=== PATIENT | female | born 1960 | race Caucasian/White ===

== ENCOUNTER → 2016-07-15 09:45 | Outpatient (CLI) | payer BC ==
[2016-01-03 09:03] VITALS: BMI 33.8
[~2016-07-15 09:45] MED LIST: ALDACTONE50 MG PO; CATAPRES TTS-10.1 MG TD; CINNAMON500 MG PO; FISH OIL 1,0001 CA1 PO; GLUCOPHAGE500 MG PO; HYDRALAZINE HCL25 MG PO; IBUPROFEN600 MG PO; INVOKANA300 MG PO; KLOR-CON 1010 MEQ PO; KORLYM PO; LASIX40 MG PO; NORMODYNE / TR300 MG PO; PRILOSEC20 MG PO; TRANDATE300 MG PO; VITAMIN D31000 UNIT PO; WELCHOL625 MG PO
== END | disposition home or self-care (01) ==
LOC: D.MRI 09:45
DX: S83.512A Sprain of anterior cruciate ligament of left knee, initial encounter (principal)

== ENCOUNTER → 2016-08-16 10:20 | Outpatient (CLI) | payer BC ==
[2016-01-03 09:03] VITALS: BMI 33.8
[2016-08-19 03:05] LABS: CALCITONIN <2.0 pg/mL (0.0-5.0)
== END | disposition home or self-care (01) ==
LOC: D.LAB 10:20
PROVIDERS: Internal Medicine Endocrinology, Diabetes & Metabolism
DX: E11.9 Type 2 diabetes mellitus without complications (principal); D35.00 Benign neoplasm of unspecified adrenal gland; E04.1 Nontoxic single thyroid nodule

== ENCOUNTER 2016-08-22 06:20 | Day surgery (SDC) | payer BC ==
[2016-08-21 15:06] LABS: HEMOGLOBIN 13.5 g/dL (12-16); MCH 30.8 pg (26.0-34.0); MCHC 32.9 g/dL (31.0-37.0); MCV 93.6 fL (80.0-100.0); MEAN PLATELET VOLUME 10.4 fL (7.4-10.4); RBC 4.38 10x6/uL (4.00-5.40); RDW 13.4 % (11.5-14.5); WBC 5.6 10x3/uL (4.8-10.8)
[2016-08-21 15:14] LABS: ANION GAP 16.2 mmol/L (8-16); CALCIUM 9.1 mg/dL (8.5-10.1); CARBON DIOXIDE 24.2 mmol/L (21.0-32.0); CREATININE - SERUM 0.9 mg/dL (0.6-1.3); POTASSIUM - SERUM 4.4 mmol/L (3.5-5.1)
[~2016-08-22] VITALS: Ht 167.6 cm; Wt 95.3 kg
[2016-08-22] MEDS ORDERED: HYDRALAZINE HCL25 MG PO (07:32)
[2016-08-22] MEDS ORDERED: BAYER CHEWABLE81 MG PO (07:33)
[2016-08-22 07:37] VITALS: BP 137/87; Ht 167.6 cm; Wt 95.3 kg
[2016-08-22] MEDS ORDERED: DILAUDID2 MG PO (10:08)
--- NOTE | 2016-08-22 12:50 | NUR ---
IV DC WITH CATHER TIP INTACT
--- NOTE | 2016-08-29 13:14 | OP ---
PATIENT NAME: FRAKNIE BENDER MEDICAL RECORD: [id number] :62 LOCATION:D.OPS ADMISSION DATE: SURGEON: SHAHLA TRACY MD OPERATION DATE: 08/22/16 DATE OF OPERATION: 08/22/2016 PREOPERATIVE DIAGNOSIS: ACL tear of the left knee. POSTOPERATIVE DIAGNOSES: 1. ACL tear of the left knee. 2. Medial meniscus tear. PROCEDURES: 1. Arthroscopic assisted allograft ACL reconstruction, left knee. 2. Partial medial meniscectomy of the left knee - arthroscopic. SURGEON: Shahla Tracy MD ANESTHESIA: General. INTRAOPERATIVE COMPLICATIONS: None. SUMMARY OF PATHOLOGIC FINDINGS: The patient was found to have a complex tear of the posterior horn of the medial meniscus in addition to the full thickness anterior cruciate ligament tear. OPERATIVE SUMMARY IN DETAIL: After obtaining the appropriate preoperative orthopedic surgery consent as well as anesthetic consultation, evaluation and clearance, the patient was brought to the operating room and placed on table in supine position. After general laryngeal mask was administered, the tourniquet was placed about the proximal aspect of the left lower extremity. Left lower extremity was then prepped and draped in routine sterile fashion. The arm was elevated, exsanguinated and tourniquet was inflated to 350 mmHg. Routine inferolateral portal was created followed by superior medial portal. Diagnostic arthroscopy did reveal the patient had the above findings. A large arthroscopic resector was utilized to debride the residual ACL stump both on the tibial aspect as well as the femoral aspect, slight notchplasty was performed. Attention was then turned to the medial meniscus. A 4.0 resector was utilized along with the meniscotomes and debride the medial meniscus back to stable meniscal elements. Having completed this, attention was returned to the ACL. A 10-mm tibial tunnel was created under arthroscopic evaluation as well as a 10 mm femoral tunnel to approximately 30 mm deep and the guide hole for passing the TightRope button was opened to approximately 4 mm using the cannulated drill bit. Guidewires were passed used on the previously placed Beath pin. This was used to pull the tails of the TightRope button through and through and then under gentle direct arthroscopic visualization, the graft was seated in the femoral compartment as well as the tibial tunnel and tightened using the TightRope technique against the lateral aspect of the femoral cortex. With good tension in place, the knee was taken through multiple range of motion. The distal fixation was carried out with bicortical tibial post. This resulted in excellent stability. Having completed this, the wounds were closed in the usual fashion. Sterile dressings were applied. The patient was awakened and taken to the recovery room in stable condition. All final needle and sponge counts were correct. OPERATIVE REPORT [id number] FRANKIE BENDER TRANSINT:[id number] Voice Confirmation ID: [id number] DOCUMENT ID: [id number] DEMARCUS VARGAS, SHAHLA FINLEY at 1314 CC: [id number] DICTATION DATE: 08/23/16 1057 ZOO VETERINARIAN: 08/29/16 0007 [facility] 08/22/16 [id number] [place] [address]
== END 2016-08-22 13:00 | disposition home or self-care (01) ==
LOC: D.OPS 06:20 → D.PAN 08:30 → D.OPS 11:15
PROVIDERS: Anesthesiology
DX: M23.612 Other spontaneous disruption of anterior cruciate ligament of left knee (principal); M17.9 Osteoarthritis of knee, unspecified; M25.562 Pain in left knee; E11.9 Type 2 diabetes mellitus without complications; K21.9 Gastro-esophageal reflux disease without esophagitis; I10 Essential (primary) hypertension; Z01.812 Encounter for preprocedural laboratory examination; S83.242A Other tear of medial meniscus, current injury, left knee, initial encounter

== ENCOUNTER 2017-04-18 06:34 | Day surgery (SDC) | payer BC ==
[2017-04-17 14:59] LABS: ANION GAP 15.1 mmol/L (8-16); CALCIUM 9.1 mg/dL (8.5-10.1); CARBON DIOXIDE 24.7 mmol/L (21.0-32.0); CREATININE - SERUM 0.9 mg/dL (0.6-1.3); POTASSIUM - SERUM 3.8 mmol/L (3.5-5.1)
[2017-04-17 15:00] LABS: HEMATOCRIT 40.5 % (36.0-48.0); HEMOGLOBIN 13.7 g/dL (12-16); MCH 31.5 pg (26.0-34.0); MCHC 33.8 g/dL (31.0-37.0); MCV 93.1 fL (80.0-100.0); MEAN PLATELET VOLUME 10.4 fL (7.4-10.4); RBC 4.35 10x6/uL (4.00-5.40); RDW 12.7 % (11.5-14.5); WBC 5.3 10x3/uL (4.8-10.8)
[~2017-04-18] VITALS: Ht 167.6 cm; Wt 105.2 kg
--- NOTE | ~2017-04-18 | OP ---
PATIENT NAME: FRANKIE BENDER MEDICAL RECORD: [id number] :62 LOCATION:D.OPS ADMISSION DATE: SURGEON: JULIO MELENDEZ MD DATE OF OPERATION: 04/18/2017 PREOPERATIVE DIAGNOSES: History of sigmoid colon polyp, which was a tubulovillous adenoma with low-grade dysplasia. POSTOPERATIVE DIAGNOSES: 1 History of sigmoid colon polyp, which was a tubulovillous adenoma with low-grade dysplasia with no evidence of persistence or regrowth of the polyp. 2. Secondary polyp, which was a 9-mm sessile polyp was noted at 80 cm and was removed utilizing hot biopsy forceps polypectomy technique. PROCEDURE: 1. Total colonoscopy to the cecum. 2. Hot biopsy forceps polypectomy times 1. SURGEON: Julio Melendez MD DIRECTOR OF COMMUNITY CENTER: None. BLOOD LOSS: Minimal. ANESTHESIA: General. COMPLICATIONS: None. The risks, possible complications and alternatives to procedure were explained to the patient. She elects to proceed. OPERATIVE COURSE: The patient was conveyed to the operating room electively on 04/18/2017. General anesthesia was induced by the anesthesia staff. The patient was placed in the Dsouza position. A digital rectal examination was performed. A colonoscope was inserted through the anus. It was easily advanced to the cecum. The prep was adequate. I slowly withdrew the endoscope. I dragged the folds. The pullback was greater than 18-minute pullback. One sessile polyp was noted. It was removed utilizing a hot biopsy forceps polypectomy technique. I then withdrew into the sigmoid colon. The tattoo was easily identified. I took 5 passes up and down past the tattoo. A combination of normal imaging and narrow band imaging were utilized. There is no evidence of regrowth of the polyp or persistence of the polyp. A retroflexed view was obtained in the rectum. I then unretroflexed the scope and removed it under direct vision. I will see the patient in my office in 2-3 weeks. It is very likely I will return the patient's endoscopic need to back over to her provider relations specialist, Dr. Janay Araya. TRANSINT:[id number] Voice Confirmation ID: [id number] DOCUMENT ID: [id number] OPERATIVE REPORT [id number] FRANKIE BENDER JULIO MELENDEZ MD at 1607 CC: JANAY ARAYA MD and ESTEVAN MARTIN MD [id number] DICTATION DATE: 04/18/17 0854 HEAD OF SALES PROMOTION: 04/18/17 0949 [facility] [place] 04/18/17 [id number] [place] [address]
[2017-04-18 06:33] VITALS: BP 104/63; Ht 167.6 cm; Wt 105.2 kg
[~2017-04-18 06:34] MED LIST changes: +BAYER CHEWABLE81 MG PO; +DILAUDID2 MG PO
== END 2017-04-18 10:24 | disposition home or self-care (01) ==
LOC: D.OPS 06:34 → D.PAN 08:00 → D.OPS 08:00 → D.PAN 09:45 → D.OPS 10:15
PROVIDERS: Anesthesiology
DX: D12.5 Benign neoplasm of sigmoid colon (principal); I10 Essential (primary) hypertension; E11.9 Type 2 diabetes mellitus without complications; K21.9 Gastro-esophageal reflux disease without esophagitis; K76.0 Fatty (change of) liver, not elsewhere classified; Z01.812 Encounter for preprocedural laboratory examination

== ENCOUNTER → 2017-07-16 13:59 | Outpatient (CLI) | payer BC ==
[2017-04-18 06:33] VITALS: BMI 37.5
== END | disposition home or self-care (01) ==
LOC: D.CT 13:59
DX: M25.572 Pain in left ankle and joints of left foot (principal)

== ENCOUNTER → 2017-09-22 06:58 | Outpatient (CLI) | payer BC ==
[2017-04-18 06:33] VITALS: BMI 37.5
== END | disposition home or self-care (01) ==
LOC: D.MRI 06:58
DX: M79.672 Pain in left foot (principal)

== ENCOUNTER 2017-11-14 15:04 | Inpatient (IN) | payer BC ==
[~2017-11-14] VITALS: Ht 167.6 cm; Wt 105.7 kg
--- NOTE | ~2017-11-14 | MORECARE ---
CASE MANAGEMENT DISCHARGE SUMMARY PATIENT: FRANKIE BENDER UNIT: [id number] ADM DATE: 11/14/17 AGE: 57 : 62 SEX: F ROOM/BED: D.1213 AUTHOR: KEEGAN,DOC PHYSICIAN: REFERRING PHYSICIAN: ESTEVAN MARTIN MD DATE OF SERVICE: 11/24/17 Discharge Plan Patient Name: FRANKIE BEND[facility] [facility] 1960 Planned Disposition: Home Anticipated Discharge Date: 11/18/17 Discharge Date: 11/21/2017 Expected LOS: 4 Initial Reviewer: [email or web address] Initial Review Date: 11/17/2017 Generated: 11/24/17 10:20 am Comments DCP- Discharge Planning Updated by [email or web address]: Dillon Nagy on 11/17/17 1:[address] Patient Name: FRANKIE BENDER Admission Status: Urgent Accout number: [id number] Admission Date: 11-14-2017 : 1960 Admission Diagnosis: Attending: ESTEVAN MARTIN Current LOS: 3 Anticipated DC Date: 11-18-2017 Planned Disposition: Home Primary Insurance: [employer] [facility] Discharge Planning Comments: * Is the patient Alert and Oriented? Yes 0 * How many steps to enter\exit or inside your home? 5 0 * PCP DR. MARTIN 0 * Pharmacy [facility] OR [place] 0 * Preadmission Environment Home Alone 0 * ADLs Independent 0 * Equipment Cane Crutch Glucometer Walker 0 * Other Equipment NO MEDICAL EQUIPMENT PROVIDER PREFERENCE 0 * List name and contact numbers for known caregivers / representatives who currently or will assist patient after discharge: MARYANN BENDER, SON, NATE BENDER, SON, 0 * Verbal permission to speak to the caregivers and representatives has been obtained from the patient. Yes 0 * Community resources currently utilized None 0 * Please name any agencies selected above. NONE 0 * Additional services required to return to the preadmission environment? No 0 * Can the patient safely return to the preadmission environment? Yes 0 * Has this patient been hospitalized within the prior 30 days at any hospital? No 0 CM MET WITH PT IN ROOM TO DISCUSS DISCHARGE PLANNING AND NEEDS. PT REPORTS LIVING AT HOME INDEPENDENTLY AND ALONE. PT HAS GLUCOMETER, CANE, CRUTHES, WALKER (ASSISTIVE DEVICES FROM PREVIOUS KNEE SURGERY); PT DOES NOT USE THE ASSISTIVE DEVICES AT THIS TIME. PT HAS NO MEDICAL EQUIPMENT PROVIDER PREFERENCE AND NO OUTSIDE SERVICES ASSISTING IN THE HOME. CM DISCUSSED AVAILABILITY OF HOME HEALTH, REHAB SERVICES AND MEDICAL EQUIPMENT. PT DENIES DISCHARGE NEEDS. Lighting Director: Dillon Nagy DCPIA - Discharge Planning Initial Assessment Updated by [email or web address]: Dillon Nagy on 11/17/17 2:00 pm * Is the patient Alert and Oriented? Yes * How many steps to enter\exit or inside your home? * PCP DR. MARTIN * Pharmacy [facility] OR [place] * Preadmission Environment Home Alone * ADLs Independent * Equipment Cane Crutch Glucometer Walker * Other Equipment NO MEDICAL EQUIPMENT PROVIDER PREFERENCE * List name and contact numbers for known caregivers / representatives who currently or will assist patient after discharge: MARYANN BENDER, SON, NATE BENDER, SON, * Verbal permission to speak to the caregivers and representatives has been obtained from the patient. Yes * Community resources currently utilized None * Please name any agencies selected above. NONE * Additional services required to return to the preadmission environment? No * Can the patient safely return to the preadmission environment? Yes * Has this patient been hospitalized within the prior 30 days at any hospital? No Last DP export: 11/17/17 1:13 p Patient Name: FRANKIE BENDER Page [id number] at 0921 All edits/amendments must be made on the electronic document DICTATION DATE: 11/24/17919 DAIRY QUALITY ASSURANCE OFFICER: JANICE 11/24/17919 RPT#: [id number] DC DATE:11/21/17 STATUS: DIS IN [facility] [address] [place] [address] END OF REPORT
[~2017-11-14 15:04] MED LIST changes: +OMEPRAZOLE20 M1 PO; -PRILOSEC20 MG PO
[2017-11-14] MEDS ORDERED: MEDROL DOSE PACK4 MG PO (15:30)
[2017-11-14] MEDS ORDERED: ZITHROMAX250 MG PO (15:31)
[2017-11-14] MEDS ORDERED: FLUTICASONE PRO16 GM NASAL (15:31)
[2017-11-14] MEDS ORDERED: ZYRTEC10 MG PO (15:31)
[2017-11-14 15:37] VITALS: BP 96/57; BMI 37.7
[2017-11-14 18:45] LABS: APPEARANCE HAZY (CLEAR); BILIRUBIN NEGATIVE (NEGATIVE); COLOR DK YELLOW (YELLOW); GLUCOSE 1000 mg/dL (NEGATIVE); KETONE NEGATIVE (NEGATIVE); NITRITE NEGATIVE (NEGATIVE); PROTEIN NEGATIVE (NEGATIVE); UROBILINOGEN NORMAL (NORMAL)
[2017-11-14 18:47] LABS: BACTERIA MANY /hpf (NONE SEEN); EPITHELIAL CELLS 0-5 /hpf (0-5)
[2017-11-14 20:02] VITALS: BP 108/63
[2017-11-15 00:35] VITALS: BP 112/65
[2017-11-15 05:29] LABS: BASOPHILS 0.1 % (0-2); EOSINOPHILS 1.2 % (0-7); HEMATOCRIT 36.6 % (36.0-48.0); HEMOGLOBIN 12.5 g/dL (12-16); IMMATURE GRANULOCYTES 0.3 % (0-5); MCH 30.6 pg (26.0-34.0); MCHC 34.2 g/dL (31.0-37.0); MCV 89.7 fL (80.0-100.0); MEAN PLATELET VOLUME 10.3 fL (7.4-10.4); NEUTROPHILS 86.4 % (40-80); PLATELET COUNT 217 10x3/uL (130-400); RBC 4.08 10x6/uL (4.00-5.40); RDW 13.2 % (11.5-14.5); WBC 17.2 10x3/uL (4.8-10.8)
[2017-11-15 06:05] LABS: ALBUMIN 2.4 g/dL (3.4-5.0); BILIRUBIN - TOTAL 0.62 mg/dL (0.2-1.3); CALCIUM 8.7 mg/dL (8.5-10.1); CREATININE - SERUM 1.1 mg/dL (0.6-1.3); POTASSIUM - SERUM 3.1 mmol/L (3.5-5.1); PROTEIN - SERUM 5.6 g/dL (6.4-8.2)
[2017-11-15 06:16] LABS: ANION GAP 12.8 mmol/L (8-16); CARBON DIOXIDE 24.3 mmol/L (21.0-32.0)
[2017-11-15 06:19] VITALS: BP 125/82
[2017-11-15 07:42] VITALS: BP 117/70
[2017-11-15 12:30] VITALS: BP 136/78
[2017-11-15 16:00] VITALS: BP 144/87
[2017-11-15 19:34] VITALS: BP 141/79
[2017-11-16 00:55] VITALS: BP 152/80
[2017-11-16 05:39] LABS: BASOPHILS 0.1 % (0-2); EOSINOPHILS 2.6 % (0-7); HEMATOCRIT 31.1 % (36.0-48.0); HEMOGLOBIN 10.3 g/dL (12-16); IMMATURE GRANULOCYTES 0.5 % (0-5); LYMPHOCYTES 12.8 % (15-50); MCH 30.2 pg (26.0-34.0); MCHC 33.1 g/dL (31.0-37.0); MCV 91.2 fL (80.0-100.0); MEAN PLATELET VOLUME 10.2 fL (7.4-10.4); MONOCYTES 6.2 % (2-11); NEUTROPHILS 77.8 % (40-80); PLATELET COUNT 206 10x3/uL (130-400); RBC 3.41 10x6/uL (4.00-5.40); RDW 13.1 % (11.5-14.5)
[2017-11-16 05:46] LABS: WBC 10.2 10x3/uL (4.8-10.8)
[2017-11-16 06:36] VITALS: BP 171/94
[2017-11-16 07:05] LABS: ALBUMIN 2.5 g/dL (3.4-5.0); ALKALINE PHOSPHATASE 83 U/L (46-116); ALT (SGPT) 50 U/L (10-68); BILIRUBIN - TOTAL 0.29 mg/dL (0.2-1.3); CALCIUM 8.5 mg/dL (8.5-10.1); CARBON DIOXIDE 23.9 mmol/L (21.0-32.0); CHLORIDE - SERUM 107 mmol/L (98-107); GLUCOSE 114 mg/dL (74-106); POTASSIUM - SERUM 3.5 mmol/L (3.5-5.1); PROTEIN - SERUM 5.6 g/dL (6.4-8.2); SODIUM 138 mmol/L (136-145)
[2017-11-16 07:06] LABS: CALC OSMOLALITY 276 mosm/kg (275-300); CREATININE - SERUM 0.8 mg/dL (0.6-1.3); UREA NITROGEN 13 mg/dL (7-18); eGFR NON AFRICAN AMERICAN 78 mL/min (90-120)
[2017-11-16 08:44] VITALS: BP 140/88
[2017-11-16 12:17] VITALS: BP 140/84
[2017-11-16 16:04] VITALS: BP 142/95
[2017-11-16] MEDS ORDERED: MEDROL DOSE PACK4 MG PO (19:10)
[2017-11-16 19:14] VITALS: BP 149/70
[2017-11-17 01:21] VITALS: BP 160/49
[2017-11-17 05:31] LABS: BASOPHILS 0.2 % (0-2); EOSINOPHILS 3.9 % (0-7); HEMATOCRIT 35.5 % (36.0-48.0); IMMATURE GRANULOCYTES 1.7 % (0-5); LYMPHOCYTES 13.5 % (15-50); MCH 30.8 pg (26.0-34.0); MCHC 33.8 g/dL (31.0-37.0); MONOCYTES 5.2 % (2-11); NEUTROPHILS 75.5 % (40-80); RDW 13.3 % (11.5-14.5); WBC 10.7 10x3/uL (4.8-10.8)
[2017-11-17 05:33] LABS: PLATELET COUNT 271 10x3/uL (130-400)
[2017-11-17 05:55] LABS: ALBUMIN 2.6 g/dL (3.4-5.0); ALKALINE PHOSPHATASE 77 U/L (46-116); ALT (SGPT) 43 U/L (10-68); BILIRUBIN - TOTAL 0.24 mg/dL (0.2-1.3); CALC OSMOLALITY 278 mosm/kg (275-300); CALCIUM 8.8 mg/dL (8.5-10.1); CARBON DIOXIDE 24.1 mmol/L (21.0-32.0); CHLORIDE - SERUM 107 mmol/L (98-107); CREATININE - SERUM 0.7 mg/dL (0.6-1.3); GLUCOSE 119 mg/dL (74-106); PROTEIN - SERUM 5.7 g/dL (6.4-8.2); SODIUM 139 mmol/L (136-145); UREA NITROGEN 12 mg/dL (7-18); eGFR NON AFRICAN AMERICAN > 90 mL/min (90-120)
[2017-11-17 06:28] VITALS: BP 173/97
[2017-11-17 08:00] VITALS: BP 158/100
[2017-11-17 11:48] VITALS: BP 144/85
[2017-11-17 16:13] VITALS: BP 161/97
[2017-11-17 20:00] VITALS: BP 158/81
[2017-11-18] VITALS: BP 156/86
[2017-11-18 04:00] VITALS: BP 57/91
[2017-11-18 05:33] LABS: BASOPHILS 0.3 % (0-2); EOSINOPHILS 3.4 % (0-7); HEMATOCRIT 38.2 % (36.0-48.0); HEMOGLOBIN 12.7 g/dL (12-16); IMMATURE GRANULOCYTES 2.3 % (0-5); LYMPHOCYTES 13.9 % (15-50); MCH 30.5 pg (26.0-34.0); MCHC 33.2 g/dL (31.0-37.0); MCV 91.6 fL (80.0-100.0); MEAN PLATELET VOLUME 10.1 fL (7.4-10.4); MONOCYTES 7.4 % (2-11); NEUTROPHILS 72.7 % (40-80); PLATELET COUNT 277 10x3/uL (130-400); RBC 4.17 10x6/uL (4.00-5.40); RDW 13.1 % (11.5-14.5); WBC 11.8 10x3/uL (4.8-10.8)
[2017-11-18 06:42] LABS: ALBUMIN 2.9 g/dL (3.4-5.0); ALKALINE PHOSPHATASE 82 U/L (46-116); ALT (SGPT) 38 U/L (10-68); BILIRUBIN - TOTAL 0.29 mg/dL (0.2-1.3); CALC OSMOLALITY 278 mosm/kg (275-300); CALCIUM 8.7 mg/dL (8.5-10.1); CHLORIDE - SERUM 106 mmol/L (98-107); CREATININE - SERUM 0.6 mg/dL (0.6-1.3); GLUCOSE 111 mg/dL (74-106); POTASSIUM - SERUM 4.2 mmol/L (3.5-5.1); PROTEIN - SERUM 5.4 g/dL (6.4-8.2); SODIUM 140 mmol/L (136-145); UREA NITROGEN 11 mg/dL (7-18); eGFR NON AFRICAN AMERICAN > 90 mL/min (90-120)
[2017-11-18 08:15] VITALS: BP 156/89
[2017-11-18 09:07] VITALS: Ht 167.6 cm; Wt 105.7 kg
[2017-11-18 12:00] VITALS: BP 155/88
[2017-11-18 15:02] VITALS: BP 162/89
[2017-11-18 21:22] VITALS: BP 144/67
[2017-11-19 00:48] VITALS: BP 154/64
[2017-11-19 04:47] VITALS: BP 148/68
[2017-11-19 06:00] LABS: BASOPHILS 0.2 % (0-2); EOSINOPHILS 3.1 % (0-7); HEMATOCRIT 38.1 % (36.0-48.0); HEMOGLOBIN 12.8 g/dL (12-16); IMMATURE GRANULOCYTES 3.6 % (0-5); LYMPHOCYTES 13.1 % (15-50); MCH 30.7 pg (26.0-34.0); MCHC 33.6 g/dL (31.0-37.0); MCV 91.4 fL (80.0-100.0); MEAN PLATELET VOLUME 9.9 fL (7.4-10.4); MONOCYTES 10.2 % (2-11); NEUTROPHILS 69.8 % (40-80); PLATELET COUNT 289 10x3/uL (130-400); RBC 4.17 10x6/uL (4.00-5.40); RDW 13.2 % (11.5-14.5); WBC 12.1 10x3/uL (4.8-10.8)
[2017-11-19 06:37] LABS: ALBUMIN 2.7 g/dL (3.4-5.0); ALKALINE PHOSPHATASE 77 U/L (46-116); ALT (SGPT) 31 U/L (10-68); BILIRUBIN - TOTAL 0.33 mg/dL (0.2-1.3); CALC OSMOLALITY 278 mosm/kg (275-300); CALCIUM 8.8 mg/dL (8.5-10.1); CARBON DIOXIDE 24.8 mmol/L (21.0-32.0); CHLORIDE - SERUM 106 mmol/L (98-107); CREATININE - SERUM 0.7 mg/dL (0.6-1.3); GLUCOSE 110 mg/dL (74-106); POTASSIUM - SERUM 3.9 mmol/L (3.5-5.1); PROTEIN - SERUM 5.6 g/dL (6.4-8.2); SODIUM 140 mmol/L (136-145); UREA NITROGEN 11 mg/dL (7-18); eGFR NON AFRICAN AMERICAN > 90 mL/min (90-120)
[2017-11-19 06:59] VITALS: BP 142/94
[2017-11-19 11:12] VITALS: BP 176/88
[2017-11-19 15:53] VITALS: BP 130/80
[2017-11-19 20:00] VITALS: BP 153/54
[2017-11-20] VITALS: BP 156/84
[2017-11-20 04:00] VITALS: BP 161/94
[2017-11-20 07:59] VITALS: BP 153/69
[2017-11-20 09:07] LABS: BASOPHILS 0.2 % (0-2); EOSINOPHILS 2.2 % (0-7); HEMATOCRIT 38.9 % (36.0-48.0); HEMOGLOBIN 13.1 g/dL (12-16); IMMATURE GRANULOCYTES 4.3 % (0-5); MCH 30.8 pg (26.0-34.0); MCHC 33.7 g/dL (31.0-37.0); MCV 91.3 fL (80.0-100.0); MEAN PLATELET VOLUME 9.7 fL (7.4-10.4); MONOCYTES 10.9 % (2-11); NEUTROPHILS 64.4 % (40-80); PLATELET COUNT 305 10x3/uL (130-400); RBC 4.26 10x6/uL (4.00-5.40); RDW 13.3 % (11.5-14.5); WBC 8.8 10x3/uL (4.8-10.8)
[2017-11-20 09:15] LABS: ANION GAP 15.5 mmol/L (8-16); CALCIUM 8.9 mg/dL (8.5-10.1); CARBON DIOXIDE 22.3 mmol/L (21.0-32.0); POTASSIUM - SERUM 3.8 mmol/L (3.5-5.1)
[2017-11-20 09:16] LABS: CREATININE - SERUM 0.9 mg/dL (0.6-1.3)
[2017-11-20 16:00] VITALS: BP 132/96
[2017-11-20 20:00] VITALS: BP 155/93
[2017-11-20 23:23] VITALS: BP 139/80
[2017-11-21 04:00] VITALS: BP 156/77
[2017-11-21 07:52] VITALS: BP 159/96
[2017-11-21 11:32] VITALS: BP 147/89
[2017-11-21] MEDS ORDERED: LISINOPRIL10 MG PO (12:53)
[2017-11-21] MEDS ORDERED: LEVAQUIN750 MG PO (12:53)
[2017-11-21] MEDS ORDERED: MUCINEX600 MG PO (12:54)
[2017-11-21] MEDS ORDERED: SINGULAIR10 MG PO (12:54)
[2017-11-21] MEDS ORDERED: BENZONATATE200 MG PO (12:54)
[2017-11-21] MEDS ORDERED: ROBITUSSIN AC (WITH PO (12:55)
== END 2017-11-21 14:30 | disposition home or self-care (01) | DRG 871 ==
LOC: D.M3 15:04
PROVIDERS: Family Medicine
DX: A41.9 Sepsis, unspecified organism (principal); J15.6 Pneumonia due to other Gram-negative bacteria; N39.0 Urinary tract infection, site not specified; B37.0 Candidal stomatitis; J98.11 Atelectasis; E11.9 Type 2 diabetes mellitus without complications; I10 Essential (primary) hypertension; E27.9 Disorder of adrenal gland, unspecified; E87.6 Hypokalemia; J31.0 Chronic rhinitis; B37.3 Candidiasis of vulva and vagina; J01.90 Acute sinusitis, unspecified; K21.9 Gastro-esophageal reflux disease without esophagitis; E31.20 Multiple endocrine neoplasia [MEN] syndrome, unspecified; K76.0 Fatty (change of) liver, not elsewhere classified; E55.9 Vitamin D deficiency, unspecified

== ENCOUNTER 2017-12-16 08:00 | Inpatient (IN) | payer BC ==
[2017-12-15 14:48] LABS: HEMATOCRIT 40.8 % (36.0-48.0); HEMOGLOBIN 13.9 g/dL (12-16); MCH 31.2 pg (26.0-34.0); MCHC 34.1 g/dL (31.0-37.0); MCV 91.7 fL (80.0-100.0); MEAN PLATELET VOLUME 9.9 fL (7.4-10.4); RBC 4.45 10x6/uL (4.00-5.40); RDW 13.5 % (11.5-14.5)
[2017-12-15 15:03] LABS: ANION GAP 14.7 mmol/L (8-16); CALCIUM 9.2 mg/dL (8.5-10.1); CARBON DIOXIDE 23.7 mmol/L (21.0-32.0); CREATININE - SERUM 0.9 mg/dL (0.6-1.3); POTASSIUM - SERUM 4.4 mmol/L (3.5-5.1)
[~2017-12-16] VITALS: Ht 167.6 cm; Wt 105.9 kg
[2017-12-16] VITALS (14 sets, daily range): BP systolic 114–162; BP diastolic 66–92; Ht 167.6 cm; Wt 105.9 kg
--- NOTE | ~2017-12-16 | OP ---
PATIENT NAME: FRANKIE BENDER MEDICAL RECORD: [id number] :62 LOCATION:MILA D.CV08 ADMISSION DATE:12/16/17 SURGEON: DAREN HAGER MD DATE OF OPERATION: 12/16/2017 PREOPERATIVE DIAGNOSES: 1. Left adrenal adenoma. 2. Ames's disease. 3. Diabetes mellitus. 4. Hypertension. 5. Morbid obesity with BMI of 37.6. POSTOPERATIVE DIAGNOSES: 1. Left adrenal adenoma. 2. Ames's disease. 3. Diabetes mellitus. 4. Hypertension. 5. Morbid obesity with BMI of 37.6. PROCEDURE: Retroperitoneoscopic left adrenalectomy. SURGEON: Daren Hager MD CO-SURGEON: Julio Calderón MD DOLL REPAIRER: Paty Yang APRN REPORT OF OPERATION: The patient was placed in jackknife prone position. A skin incision was made at the tip of the 12th rib on the left side. Electrocautery was used to dissect through the subcutaneous tissues down to the fascia. The fascia was elevated and opened up with electrocautery. I then bluntly dissected through the remaining tissues into the retroperitoneal space. I then cleared out the retroperitoneal space with blunt dissection and placed a 5-mm trocar medially and another 5-mm trocar laterally. A 12-mm balloon trocar was inserted. We then insufflated the retroperitoneal space. We began our dissection through the retroperitoneum. Initially, we came up the side and encountered a structure that looked like the kidney, but as we dissected this out, we could actually see more abdominal structures, so this was found to be most consistent with the spleen. We obviously penetrated somewhere through the peritoneum. We backed out back into the retroperitoneal space. At this point, we did dissect a little more medially and we were able to find the inferior aspect of the left kidney. We dissected over the posterior aspect of the kidney to the superior portion. At this point, we were able to visualize the inferior aspect of the adrenal adenoma. We came laterally and posteriorly to the adrenal gland and we were able to dissect this free using Harmonic scalpel. As we went more medially, we ran into 2 large vessels which appeared to be arterial and these were clipped proximally and distally and ligated. We ran across a large venous structure which was clipped proximally and distally and ligated. At this point, we continued our dissection around the left adrenal gland using Harmonic scalpel and eventually was able to completely free it up. We placed it into an EndoCatch bag and then removed it through the 12-mm trocar site. The area was irrigated out. There was no sign of any surgical bleeding. At this point, the insufflation was then removed. We then closed the fascia of the 10-mm trocar site using a single interrupted #0 Vicryl. The wounds were then infused with total of 10 mL of 0.25% Marcaine with epinephrine and then closed with OPERATIVE REPORT [id number] FRANKIE BENDER subcutaneous 5-0 Monocryl. COMPLICATIONS: None. CONDITION: Stable. ANESTHESIA: General endotracheal and local. BLOOD LOSS: 50 mL. TRANSINT:[id number] Voice Confirmation ID: [id number] DOCUMENT ID: [id number] DAREN HAGER MD at 1219 CC: MINERVA KAY MD, ESTEVAN MARTIN MD and JULIO CALDERÓN [id number] DICTATION DATE: 12/16/17 1412 PRODUCT SALES ENGINEER: 12/16/17 1459 DIS IN 12/17/17 [facility] [address] [place] [address]
--- NOTE | ~2017-12-16 | OP ---
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 PROCEDURE: Laparoscopic retroperitoneal left adrenalectomy. FINDINGS: Large left adrenal gland with multiple veins and visible artery. SPECIMEN: Left adrenal gland. BLOOD LOSS: Minimal. CLINICAL HISTORY: This is a 57-year-old female who was diagnosed with Uday's syndrome. She has an elevated cortisol level and she has insulin resistance as well as typical cushingoid appearance. On further workup by her quality rn, who is Dr. Zachary Gaytan of [facility] at [address] [place] [address], [address] [address], she was found to have hypersecretion of ACTH. The pituitary MRI did not reveal an obvious adenoma. She has seen neurosurgeons to try to get this alleviated. I will also be referring her to a neurosurgeon at [facility] who deals with pituitary disease. In the interim, the left adrenal has grown rapidly in size. It has up to 3.7 cm now. Previously, it was in the [address] Gaytan was concerned about the development of potential adrenocortical carcinoma. She had previously had this left adrenal biopsy over a year ago and the biopsies were benign. The patient is of clear understanding that removing the left adrenal gland is to prevent any cancer from developing in it. It will not cure her Uday's disease which is due to a pituitary problem. In the interim, she has been treated with Korlym. This is a glucocorticoid receptor kellie to block the action of cortisol. This has been tapered off over the course of month. She now comes to have surgery done. DESCRIPTION OF PROCEDURE: The patient was placed in the jackknife position after having been given induction of general anesthesia. She was prepped and draped. A Denney catheter had been inserted into the bladder and put to bag drainage. We palpated the apex of the 12th rib. Here, a 1.5-cm incision was made and we went down through the fascia into the retroperitoneal space. Blunt dissection with the finger allowed us to put a 5-mm port at the tip of the 11th rib. A 10-mm port went into the 12th rib area. Another 5-mm port was placed about at some distance away from the undersurface of the 12th rib. We then entered to the retroperitoneal space. The areolar fat in the retroperitoneal space was taken down by blunt dissection using graspers. The initial dissection brought us into the peritoneal space as we identified the spleen. We moved back into the retroperitoneal space and found the perinephric fat. We then dissected into the perinephric fat to find the superior surface of the left kidney. By OPERATIVE REPORT [id number] FRANKIE BENDER dissecting along the upper pole of the left kidney going from lateral to medial, we finally encountered the adrenal gland. The adrenal gland was very large and highly vascular. We continued to dissect around it, especially on the undersurface of it. As we encountered the vascularity, it was divided using the Harmonic scalpel. It had quite an extensive tail going down the medial surface of the kidney and we removed the entire tail along with the specimen. Finally, as we moved upwards to the superomedial surface of the adrenal gland, we found a large adrenal vein coming off the inferior vena cava. This was clipped multiple times and divided. We also found some accessory adrenal veins, which were also clipped and divided as we are doing the dissection. Going a little bit more inferiorly along the medial surface, we encountered the adrenal artery and this was also clipped multiple times and divided. Finally, we had the entire adrenal gland removed. This was placed in the specimen bag and removed entirely. It was sent to pathology. Looking at the adrenal bed, we found no evidence of bleeding. The CO2 was vented out of the patient. We had been using a CO2 pressure of 30 mmHg during the entire case. The fascia where the 10-mm port at the tip of the 12th rib was located was closed using a 2-0 Vicryl suture. The other port sites and the skin sites were closed using simple interrupted sutures of 4-0 Vicryl. The dressings were applied to the incision. The patient will be monitored in the ICU. I have asked Dr. Toure to give her 100 mg of hydrocortisone for cortisol replacement. We will continue this every 8 hours for the first day and then wean her off by 25 mg per day. This is per Dr. De La Paz's recommendation. TRANSINT:[id number] Voice Confirmation ID: [id number] DOCUMENT ID: [id number] JULIO CALDERNÓ MD at 1532 CC: [id number] DICTATION DATE: 12/16/17 1422 TELEVISION INSPECTOR: 12/16/17 1523 [facility] [place] [address] [place] [id number]
[~2017-12-16 08:00] MED LIST changes: +BENZONATATE200 MG PO; +FLUTICASONE PRO16 GM NASAL; +LEVAQUIN750 MG PO; +LISINOPRIL10 MG PO; +MEDROL DOSE PACK4 MG PO; +MUCINEX600 MG PO; +ROBITUSSIN AC (WITH PO; +SINGULAIR10 MG PO; +ZITHROMAX250 MG PO; +ZYRTEC10 MG PO
[2017-12-17] VITALS (12 sets, daily range): BP systolic 104–130; BP diastolic 56–80
[2017-12-17 09:38] LABS: CALCIUM 8.5 mg/dL (8.5-10.1); CHLORIDE - SERUM 106 mmol/L (98-107); CREATININE - SERUM 0.7 mg/dL (0.6-1.3); SODIUM 138 mmol/L (136-145); eGFR NON AFRICAN AMERICAN > 90 mL/min (90-120)
[2017-12-17 09:41] LABS: CALC OSMOLALITY 280 mosm/kg (275-300); GLUCOSE 187 mg/dL (74-106); UREA NITROGEN 13 mg/dL (7-18)
== END 2017-12-17 11:22 | disposition home or self-care (01) | DRG 614 ==
LOC: D.ICU 08:00 → D.OPS 08:00 → D.PAN 08:00 → D.OPS 10:30 → D.PAN 11:30 → D.ICU 16:04 → D.OPS 16:05 → D.ICU 16:06 → D.CVICU 16:06
PROVIDERS: Anesthesiology; Surgery; Urology
PROC: 0GB24ZZ Excision of Left Adrenal Gland, Percutaneous Endoscopic Approach (ICD-10-PCS; principal; 2017-12-16 10:30)
DX: D35.02 Benign neoplasm of left adrenal gland (principal); E24.8 Other Cushing's syndrome; E11.9 Type 2 diabetes mellitus without complications; I10 Essential (primary) hypertension; E66.01 Morbid (severe) obesity due to excess calories; Z68.37 Body mass index [BMI] 37.0-37.9, adult

== ENCOUNTER → 2018-02-12 12:38 | Outpatient (CLI) | payer BC ==
[2017-12-16 17:52] VITALS: BMI 37.7
== END | disposition home or self-care (01) ==
LOC: D.MRI 12:38
DX: E24.8 Other Cushing's syndrome (principal)

== ENCOUNTER → 2018-05-04 13:27 | Outpatient (CLI) | payer BC ==
[2017-12-16 17:52] VITALS: BMI 37.7
[2018-05-04 13:58] LABS: BASOPHILS 0.2 % (0-2); EOSINOPHILS 1.4 % (0-7); HEMATOCRIT 42.9 % (36.0-48.0); HEMOGLOBIN 14.4 g/dL (12-16); IMMATURE GRANULOCYTES 0.3 % (0-5); LYMPHOCYTES 21.5 % (15-50); MCH 30.6 pg (26.0-34.0); MCHC 33.6 g/dL (31.0-37.0); MCV 91.1 fL (80.0-100.0); MEAN PLATELET VOLUME 10.3 fL (7.4-10.4); MONOCYTES 9.6 % (2-11); PLATELET COUNT 262 10x3/uL (130-400); RBC 4.71 10x6/uL (4.00-5.40); RDW 12.4 % (11.5-14.5); WBC 10.1 10x3/uL (4.8-10.8)
[2018-05-04 14:01] LABS: APPEARANCE CLEAR (CLEAR); COLOR YELLOW (YELLOW); SPECIFIC GRAVITY 1.015 (1.005-1.020)
[2018-05-04 14:02] LABS: BILIRUBIN NEGATIVE (NEGATIVE); GLUCOSE NEGATIVE (NEGATIVE); KETONE NEGATIVE (NEGATIVE); NITRITE NEGATIVE (NEGATIVE); PROTEIN NEGATIVE (NEGATIVE); UROBILINOGEN NORMAL (NORMAL)
[2018-05-04 14:19] LABS: APTT 24.1 SECONDS (22.8-39.4); INR 1.04 (0.85-1.17); PROTIME 13.1 SECONDS (11.6-15.0)
[2018-05-04 14:20] LABS: ANION GAP 16.5 mmol/L (8-16); CALCIUM 9.4 mg/dL (8.5-10.1); CARBON DIOXIDE 25.3 mmol/L (21.0-32.0); CREATININE - SERUM 1.3 mg/dL (0.6-1.3); POTASSIUM - SERUM 5.8 mmol/L (3.5-5.1)
== END | disposition home or self-care (01) ==
LOC: D.LAB 13:27
PROVIDERS: ATTEND Neurological Surgery
DX: E24.0 Pituitary-dependent Cushing's disease (principal)

== ENCOUNTER → 2018-08-06 11:21 | Outpatient (CLI) | payer BC ==
[2017-12-16 17:52] VITALS: BMI 37.7
== END | disposition home or self-care (01) ==
LOC: D.HCCARDIO 11:21
PROVIDERS: ATTEND Internal Medicine Cardiovascular Disease
DX: I10 Essential (primary) hypertension (principal); R06.09 Other forms of dyspnea

== ENCOUNTER 2018-08-27 06:37 | Outpatient (CLI) | payer BC ==
[~2018-08-27] VITALS: Ht 167.6 cm; Wt 104.5 kg
--- NOTE | ~2018-08-27 | HEMODYNAMI ---
PATIENT:FRANKIE BENDER MEDICAL RECORD: [id number] : 62 LOCATION:[facility] ADMISSION DATE: 08/27/18 Generatedon:08/27/20189:32 Patient name: FRANKIE BENDER Patient #: [id number] SSN: : 1960 Date of study: 08/27/2018 Page: Of Hemodynamic Procedure Report Patient Data Patient Demographics Procedure consent was obtained First Name: FRANKIE Gender: Female Last Name: NAPOLEON : 1960 Middle Initial: G Age: 58 year(s) Patient #: [id number] Race: Unknown Additional ID: [id number] Contact details [address]: [address] [place] [address] State: [place] City: [place] Zip code: [address] Past Medical History Allergies Allergen Reaction Date Comments Reported Other allergy 08/27/2018 HYDROCODONE Admission Admission Data Admission Date: 08/27/2018 Admission Time: 6:37 Weight (lbs.): 231.49 Weight (kg.): 105 Lab Results Lab Result Date: 08/27/2018 Lab Result Time: 0:00 Biochemistry Name Units Result Min Max Creatinine mg/dl 1.1 --(--*-)-- 0.6 1.3 eGFR ml/min 54 *-(----)-- 90 120 NONAFRICAN Procedure Procedure Types Cath Procedure Diagnostic Procedure [facility] w/Coronaries FFR/IVUS Intra-Coronary IVUS Initial Sedation Charges Moderate Sedation up to 45 minutes PCI Procedure Coronary Stent Coronary Stent Initial Procedure Description Procedure Date Procedure Date: 08/27/2018 Procedure Start Time: 8:41 Procedure End Time: 9:29 Procedure Staff Name Function Velasquez Cervantes MD Performing Physician Mayra Yang RT Monitor Freeman Galan RT Scrub Cecy Gonzalez RT Scrub Corky Morales RN Nurse Procedure Data Cath Procedure Fluoroscopy Diagnostic fluoroscopy Total fluoroscopy Time: 7.1 time: 7.1 min min Diagnostic fluoroscopy Total fluoroscopy dose: dose: 1626 mGy 1626 mGy Contrast Material Contrast Material Type Amount (ml) Isovue 300 54 Entry Location Entry Primary Successful Side Size Upsize Upsize Entry Closure Floyd ccessful Closure Location (Fr) 1 (Fr) 2 (Fr) Remarks Device Remarks Radial Right 6 Fr Mechanical artery Short Compression Estimated blood loss: 10 ml Diagnostic catheters Device Type Used For End Catheter Placement DIAGNOSTIC [place] 110cm 5 Procedure Fr catheter ([id number]) Procedure Complications No complications Procedure Medications Medication Administration Route Dosage Oxygen etCO2 Nasal cannula 2 l/min Lidocaine 2% added to field 20 Heparin Flush Bag added to field 2 bags (1000units/500ml NS) 0.9% NaCl I.V. 100 ml/hr Radial Cocktail I.A. 1 syringe (Verapamil 2mg/Nitro 400mcg/Heparin 1500units) Versed I.V. 2 mg Fentanyl I.V. 50 mcg Versed I.V. 1 mg Fentanyl I.V. 50 mcg Versed I.V. 1 mg Heparin Bolus I.V. 60876 units Fentanyl I.V. 50 mcg Fentanyl I.V. 50 mcg Nitroglycerin IC/IA I.C. 100 mcg Plavix P.O. 600 mg Hemodynamics Rest Heart Rate: 74 (bpm) Pressure Samples Time Site Value (mmHg) Purpose Heart Use Rate(bpm) 8:46 LV 104/-6,3 Snapshot 76 Gradients Valve Time Site Site Mean SEP/DFP Peak To Heart Use 1 2 (mmHg) (sec/min) Peak Rate (mmHg) (bpm) Aortic 8:47 LV AO 91 Snapshots Pre Cath Intra NCS Post Cath Vital Signs Time Heart Resp SPO2 etCO2 NIBP Rhythm Pain Sedation Rate (ipm) (%) (mmHg) (mmHg) Status Level (bpm) 8:26:13 73 18 100 23.9 108/87(99) NSR 0 (11) 10(A) , No pain 8:30:21 68 17 95 28.4 120/75(90) NSR 0 (11) 10(A) , No pain 8:34:33 68 18 93 0 102/61(70) NSR 0 (11) 10(A) , No pain 8:38:37 68 17 96 35.9 99/68(88) NSR 0 (11) 9(A) , No pain 8:42:44 69 17 96 35.9 91/62(78) NSR 0 (11) 9(A) , No pain 8:46:48 85 19 94 27.7 95/63(81) NSR 0 (11) 9(A) , No pain 8:50:54 74 20 93 32.2 93/62(74) NSR 0 (11) 9(A) , No pain 8:54:58 73 20 95 33.7 93/65(80) NSR 0 (11) 9(A) , No pain 8:59:02 68 19 97 34.4 93/63(76) NSR 0 (11) 9(A) , No pain 9:03:07 71 18 98 34.5 100/61(84) NSR 0 (11) 9(A) , No pain 9:07:13 71 18 96 34.5 89/67(77) NSR 0 (11) 9(A) , No pain 9:11:17 71 26 98 35.2 96/62(82) NSR 0 (11) 9(A) , No pain 9:15:23 71 30 97 35.2 100/60(81) NSR 0 (11) 9(A) , No pain 9:19:26 71 30 99 37.5 104/71(83) NSR 0 (11) 9(A) , No pain 9:23:34 75 17 97 26.9 100/67(86) NSR 0 (11) 9(A) , No pain 9:27:40 76 17 99 36.7 116/69(88) NSR 0 (11) 10(A) , No pain Medications Time Medication Route Dose Verified Delivered Reason Note s Effectiveness by by 8:28:37 Oxygen etCO2 2 l/min Velasquez Buffie used for Nasal Billy Morales RN procedure cannula 8:28:51 Lidocaine 2% added 20ml Velasquez Velasquez for local to vial Billy Cervantes MD anesthetic field 8:28:57 Heparin Flush added 2 bags Velasquez Velasquez used for Bag to Billy Cervantes MD procedure (1000units/500ml field NS) 8:29:07 0.9% NaCl I.V. 100 Velasquez Buffie Per physician ml/hr Billy Morales RN 8:34:29 Versed I.V. 2 mg Velasquez Buffie for sedation Billy Morales RN 8:34:34 Fentanyl I.V. 50 mcg Velasquez Buffie for sedation Billy Morales RN 8:38:23 Versed I.V. 1 mg Velasquez Buffie for sedation Billy Morales RN 8:38:28 Fentanyl I.V. 50 mcg Velasquez Buffie for sedation Billy Morales RN 8:43:03 Versed I.V. 1 mg Velasquez Buffie for sedation Billy Morales RN 8:43:12 Radial Cocktail I.A. 1 Velasquez Velasquez for (Verapamil syringe Billy Cervantes MD vasodilation 2mg/Nitro 400mcg/Heparin 1500units) 8:58:15 Heparin Bolus I.V. 10,000 Velasquez Buffie for units Billy Morales RN anticoagulation 9:01:02 Fentanyl I.V. 50 mcg Velasquez Buffie for sedation Billy Morales RN 9:14:13 Fentanyl I.V. 50 mcg Velasquez Buffie for sedation Billy Morales RN 9:20:09 Nitroglycerin I.C. 100 mcg Velasquez Velasquez for IC/IA Billy Cervantes MD vasodilation 9:31:20 Plavix P.O. 600 mg Velasquez Buffie for Billy Morales RN antiplatelet therapy Procedure Log Time Note 8:00:26 Corky Morales RN sent for patient. Start room use. 8:04:42 Signed procedure consent form obtained from patient. 8:04:44 Diagnostic Cath status Elective 8:04:45 Time tracking: Regular hours (M-F 7:00 - 5:00) 8:04:50 Plan of Care:Hemodynamics will remain stable., Cardiac rhythm will remain stable., Comfort level will be maintained., Respiratory function will remain adequate., Patient/ family verbilizes understanding of procedure., Procedure tolerated without complication., Recovers from procedure without complications.. 8:05:26 Signed procedure consent form obtained from patient. 8:05:43 H&P Date Dictated: 07/29/2018 Within 30 days and on chart., H&P Addendum completed by physician on day of procedure. (MUST COMPLETE FOR ALL OUTPATIENTS). 8:15:01 Patient Weight : 231.49 lbs 8:15:17 Patient allergic to Other allergyHYDROCODONE 8:17:11 Lab Result : Creatinine 1.1 mg/dl 8:17:11 Lab Result : eGFR NONAFRICAN 54 ml/min 8:19:14 Patient received from Pre/Post Procedure Room to CCL 1 Alert and oriented. Tansferred to table in Supine position. 8:19:15 Warm blankets applied, and sandrita hugger turned on for patient comfort. 8:19:16 Correct patient and procedure confirmed by team. 8:19:16 ECG and BP/O2 sat monitors applied to patient. 8:24:55 Vital chart was started 8:26:00 Baseline sample Acquired. 8:26:06 Rhythm: sinus rhythm 8:26:07 Full Disclosure recording started 8:26:08 Pre-procedure instructions explained to patient. 8:26:08 Pre-op teaching completed and patient verbalized understanding. 8:26:09 Family in patients room. 8:26:31 Patient NPO since Breakfast. 8:26:33 Is patient on blood thinner?No 8:26:37 Is patient on blood thinner?No 8:26:39 Patient diabetic? Yes. 8:26:41 If diabetic: On Metformin? Yes 8:26:45 If on Metformin: Last Dose? 08/26/2018 8:26:49 Previous problem with sedation/anesthesia? No ? 8:26:50 Snore? Yes 8:26:52 Sleep apnea? No 8:26:53 Deviated septum? No 8:26:54 Opens mouth fully? Yes 8:26:55 Sticks out tongue? Yes 8:26:57 Airway obstruction? No ? 8:27:00 Dentures? No ? 8:27:02 Modified Hakan's test Ulnar < 7 seconds 8:27:26 Patient pain scale 0/10 ?. 8:27:31 IV patent on arrival in left antecubital with 0.9% NaCl at [facility]. 8:27:33 Lab results completed and on chart. 8:27:37 Right Radial & Right Groin area was prepped with chlora-prep and draped in sterile fashion 8:27:38 Alarms reviewed by R. N. 8:27:38 Sharps counted by scrub and verified by R.N. 8:27:41 Use device set Radial Dx or PCI 8:27:46 ACIST Syringe (92012) opened to sterile field. 8:27:47 ACIST Hand Control (57672) opened to sterile field. 8:27:47 ACIST Manifold (13391) opened to sterile field. 8:27:48 Tegaderm 4 x 4 (9697W) opened to sterile field. 8:27:51 Bag Decanter (2001S) opened to sterile field. 8:27:52 Medline Cath Pack ([id number]) opened to sterile field. 8:27:52 MBrace Wrist Support ([id number]) opened to sterile field. 8:27:54 SHEATH 6FR RAIN (3812461) opened to sterile field. 8:27:54 EMERALD Guide Wire (582-822) opened to sterile field. 8:28:37 Oxygen 2 l/min etCO2 Nasal cannula was administered by Corky Morales RN; used for procedure; 8:28:51 Lidocaine 2% 20ml vial added to field was administered by Velasquez Cervantes MD; for local anesthetic; 8:28:57 Heparin Flush Bag (1000units/500ml NS) 2 bags added to field was administered by Velasquez Cervantes MD; used for procedure; 8:29:07 0.9% NaCl 100 ml/hr I.V. was administered by Corky Morales RN; Per physician; 8:31:10 --------ALL STOP TIME OUT------ 8:31:11 Final Timeout: patient, procedure, and site verified with staff and physician. All members of the team are in agreement. 8:31:12 Right Radial & Right Groin site verified by team. 8:31:17 Fire Safety Assessment: A--An alcohol-based skin anteseptic being used preoperatively., C--Open oxygen or nitrous oxide is being used., D--An ESU, laser, or fiber-optic light is being used. 8:31:43 Physical assessment completed. ASA score P 2 - A patient with mild systemic disease as per Velasquez Cervantes MD. 8:31:48 3a) 45-59 Moderately reduced kidney function. 8:31:51 Maximum allowable contrast does (3.7 X eGFR X 0.75)150 ml. 8:31:55 Sedation plan: IV Moderate Sedation Medication:Versed, Fentanyl 8:34:29 Versed 2 mg I.V. was administered by Corky Morales RN; for sedation; 8:34:34 Fentanyl 50 mcg I.V. was administered by Corky Morales RN; for sedation; 8:38:23 Versed 1 mg I.V. was administered by Corky Morales RN; for sedation; 8:38:28 Fentanyl 50 mcg I.V. was administered by Corky Morales RN; for sedation; 8:41:02 Procedure started. 8:41:03 Zero performed for pressure channel P1 8:41:32 Local anesthetic to right radial artery with Lidocaine 2% by Velasquez Cervantes MD.INITIAL ACCESS ONLY 8:43:03 Versed 1 mg I.V. was administered by Corky Morales RN; for sedation; 8:43:12 Radial Cocktail (Verapamil 2mg/Nitro 400mcg/Heparin 1500units) 1 syringe I.A. was administered by Velasquez Cervantes MD; for vasodilation; 8:43:35 A 6 Fr Short sheath was inserted into the Right Radial artery 8:44:13 NEEDLE Cook 21G 4cm Radial ([id number]) opened to sterile field. 8:45:15 A DIAGNOSTIC [place] 110cm 5 Fr catheter (208670) was advanced over the wire and used for Procedure. 8:45:47 LV gram done using BEEBE 8:45:51 Injector settings: Ml/sec: 5, Volume: 15, 8:46:24 LV hemodynamics recorded. 8:46:51 EF : 60 % 8:49:27 LCA angiography performed. 8:52:16 RCA angiography performed. 8:54:04 Catheter exchanged over wire. 8:54:54 INFLATOR Merit BasixCompak (IE2618) opened to sterile field. 8:54:54 TUBING High Pressure Extension Tubing (Cervantes) (PT3130J) opened to sterile field. 8:55:45 Brainard [place] Eag[place] IVUS Catheter (74903M) opened to sterile field. 8:56:04 GUIDE 6FR XBLAD 3.5 catheter ([id number]) opened to sterile field. 8:56:13 6 Fr XBLAD 3.5 guide catheter was inserted over the wire 8:56:38 BMW 300cm Straight [place] 2 wire (8933473) opened to sterile field. 8:58:15 Heparin Bolus 10,000 units I.V. was administered by Corky Morales RN; for anticoagulation; 8:59:20 BMW 300 wire advanced. 8:59:38 Wire advanced across lesion. 9:01:02 Fentanyl 50 mcg I.V. was administered by Corky Morales RN; for sedation; 9:04:41 IVUS catheter advanced over wire. 9:04:42 IVUS pass to LAD lesion performed. 9:04:43 IVUS catheter removed over wire. 9:14:13 Fentanyl 50 mcg I.V. was administered by Corky Morales RN; for sedation; 9:15:15 Place stent Inflation Number: 1 A COBRA RX 3.0 X 12 Stent was prepped and advanced across the Mid LAD . The stent was deployed at 12 MARIXA for 0:00 (min:sec) . 9:15:24 Stent catheter was removed intact over wire. 9:18:31 Place stent Inflation Number: 2 A COBRA RX 3.5 X 18 Stent was prepped and advanced across the Mid LAD . The stent was deployed at 12 MRAIXA for 0:00 (min:sec) . 9:18:45 Stent catheter was removed intact over wire. 9:20:09 Nitroglycerin IC/IA 100 mcg I.C. was administered by Velasquez Cervantes MD; for vasodilation; 9:22:39 Wire removed. 9:22:40 Guide catheter removed. 9:23:36 TR BAND Standard ([id number]) opened to sterile field. 9:23:39 Procedure ended.(Physican Out) 9:23:57 Sheath removed intact; hemostasis achieved with Mechanical Compression to the Right Radial artery. 9:25:50 Fluoroscopy time 07.10 minutes. 9:25:53 Fluoroscopy dose: 1626 mGy 9:25:53 Flurop Dose total: 1626 9:25:58 Contrast amount:Isovue 300 54ml. 9:25:59 Sharps counted by scrub and verified by R.N. 9:26:01 TR band inflated with 10cc of air. 9:26:14 Post-procedure physical assessment completed. ASA score P 2 - A patient with mild systemic disease as per Velasquez Cervantes MD. 9:26:17 Post procedure rhythm: sinus rhythm 9:26:19 Estimated blood loss: 10 ml 9:26:20 Post procedure instruction explained to patient.Patient verbalizes understanding. 9:26:21 Patient needs reinforcement of post procedure teaching. 9:28:01 Procedure type changed to Cath procedure, Diagnostic procedure, LHC, LHC w/Coronaries, FFR/IVUS, Intra-Coronary IVUS Initial, Sedation Charges, Moderate Sedation up to 45 minutes, PCI procedure, Coronary Stent, Coronary Stent Initial 9:29:01 Procedure and supply charges have been captured, reviewed, submitted and are correct. 9:29:03 Procedure Complication : No complications 9:29:05 Vital chart was stopped 9:29:05 See physician's report for complete and final results. 9:29:06 Report given to Pre/Post Procedure Room. 9:29:09 Patient transfered to Pre/Post Procedure Room with Bed. 9:29:11 Procedure ended. 9:29:11 Full Disclosure recording stopped 9:29:14 End room use (Document Last) 9:31:20 Plavix 600 mg P.O. was administered by Corky Morales RN; for antiplatelet therapy; Intervention Summary Intervention Notes Time ActionType Lesion and Equipment Action# Pressure Duration Attributes Used 9:15:15 Place stent Mid LAD COBRA RX 1 12 00:00 3.0 X 12 Stent 9:18:31 Place stent Mid LAD COBRA RX 2 12 00:00 3.5 X 18 Stent Device Usage Item Name Manufacture Quantity Catalog Hospital Part Current Minimal Lot# / Number Charge Number Stock Stock Serial# Code ACIST Syringe Acist 1 83750 369496 879279 178473 20 (71787) Medical Systems Inc ACIST Hand Acist 1 98235 427881 010898 509172 5 Control Medical (47517) Systems Inc ACIST Manifold Acist 1 32564 056527 022674 243742 5 (01754) Medical Systems Inc Tegaderm 4 x 4 3M 1 1626W 463608 867280 834101 5 (1626W) Bag Decanter Microtek 1 2002S 058875 21721 930178 5 (2002S) Medical Inc. Medline Cath Medline 1 [id number] 778753 20436 317864 5 Pack ([id number]) MBrace Wrist Advanced 1 140-0250-00 044200 61508 314531 5 Support Vascular (145725259) Dynamics SHEATH 6FR Cardinal 1 7731327 532686 4553822 645652 5 RAIN (6658958) Health EMERALD Guide Cardinal 1 502-455 581836 969664 448329 5 Wire (397-455) Health NEEDLE Digital Tech Frontier [facility] 1 H61494 536343 691798 619903 5 21G 4cm Radial (Y65664) DIAGNOSTIC Terumo 1 40-2618 437241 270641 243650 5 [place] 110cm 5 Fr catheter (251268) INFLATOR Merit Merit 1 RQ1556 092390 248374 469432 15 BasixCompak Medical (QC3163) TUBING High Merit 1 [id number] 098291 41623 547188 10 Pressure Medical Extension Tubing (Cervantes) (IF9596Q) Brainard Brainard 1 65231G 718056 590414 995171 8 [place] IVUS Catheter (87082Y) GUIDE 6FR Cardinal 1 74524619 119730 328269 038898 10 XBLAD 3.5 Health catheter (47248852) BMW 300cm Le 1 7351100 345124 324837 946963 5 Straight Vascular [place] 2 wire (2099248) COBRA RX 3.0 X Celonova 1 410-15-95170 321024 79321444 5738463 3 [id number] 12 stent Biosciences (644-97-26347) COBRA RX 3.5 X Celonova 1 772-18-75013 326805 204726014 29710457 5 [id number] 18 stent Biosciences (425-09-12907) TR BAND Terumo 1 [id number] 224531 502072 615873 40 Standard ([id number]) Signature Audit [place] Stage Time Signature Unsigned Intra-Procedure 08/27/2018 Mayra Ynag 9:32:11 AM RT(R) Signatures Performing Physician : Signature : Velasquez Cervantes MD Date : Time : Monitor : Mayra Yang Signature : RT Date : Time : Nurse : Corky Morales RN Signature : Date : Time : [facility] [address] [place] [address]
[2018-08-27] MEDS ORDERED: CORTEF10 MG PO (07:01)
[2018-08-27 07:14] VITALS: BP 119/83; Ht 167.6 cm; Wt 104.5 kg
[2018-08-27 07:59] LABS: ANION GAP 13.8 mmol/L (8-16); CALCIUM 8.9 mg/dL (8.5-10.1); CARBON DIOXIDE 24.3 mmol/L (21.0-32.0); CREATININE - SERUM 1.1 mg/dL (0.6-1.3); POTASSIUM - SERUM 4.1 mmol/L (3.5-5.1)
[2018-08-27 08:32] LABS: BASOPHILS 0.4 % (0-2); EOSINOPHILS 4.2 % (0-7); HEMATOCRIT 35.3 % (36.0-48.0); HEMOGLOBIN 11.8 g/dL (12-16); LYMPHOCYTES 41.2 % (15-50); MCH 29.3 pg (26.0-34.0); MCHC 33.4 g/dL (31.0-37.0); MCV 87.6 fL (80.0-100.0); MEAN PLATELET VOLUME 10.8 fL (7.4-10.4); MONOCYTES 11.3 % (2-11); NEUTROPHILS 42.9 % (40-80); PLATELET COUNT 253 10x3/uL (130-400); RBC 4.03 10x6/uL (4.00-5.40); RDW 12.9 % (11.5-14.5); WBC 5.7 10x3/uL (4.8-10.8)
--- NOTE | 2018-08-27 09:50 | NUR ---
RECEIVED PT FROM PROPELLANT CHARGE LOADER. PT AWAKE, C/O REFLUX AND REQUESTS PO FLUIDS AND THESE SERVED. DR CUNNINGHAM HAS ROUNDED ON PT AND SPOKEN WITH HER AND FAMILY IN THE ROOM. NSR, RATE IS 77. BP IS 113/80. TR BAND CDI, FINGERS WARM AND CAP REFILL IS BRISK. IMMOBILIZER IN PLACE. PT DENIES ANY NV DEFICIT TO HAND. FAMILY AT BEDSIDE, CALL LIGHT IN REACH.
[2018-08-27] MEDS ORDERED: PLAVIX75 MG PO (09:55)
[2018-08-27] MEDS ORDERED: BAYER CHEWABLE81 MG PO (09:55)
--- NOTE | 2018-08-27 10:06 | NUR ---
PT HAS TOLERATED PO FLUIDS AND PUDDING WITH NO NAUSEA. TR BAND IS CDI, FINGERS WARM AND CAP REFILL IS BRISK. PT SLEEPING INTERMITTENTLY. AWAKENS EASILY AND DENIES ANY C/O. VSS. FAMILY AT BEDSIDE.
--- NOTE | 2018-08-27 10:29 | NUR ---
TR BAND CDI, FINGERS WARRM VSS. PT DENIES ANY C/O.
--- NOTE | 2018-08-27 10:59 | NUR ---
PT SLEEPING, AWAKENS EASILY. DENIES ANY C/O. TR BAND CDI, FINGERS WARM AND CAP REFILL IS BRISK. VSS, FAMILY AT BEDSIDE.
--- NOTE | 2018-08-27 11:28 | NUR ---
PT SLEEPING, AWAKENS EASILY, DENIES ANY C/O PAIN OR NAUSEA. SHE SIPS OF PO FLUIDS. TR BAND IS CDI, FINGERS WARM, PT DENIES ANY NV DEFICIT. FAMILY AT BEDSIDE, CALL LIGHT IN REACH.
--- NOTE | 2018-08-27 12:10 | NUR ---
PT SLEEPING, VSS, TR BAND CDI, FINGERS WARM AND CAP REFILL IS BRISK
--- NOTE | 2018-08-27 12:45 | NUR ---
2 CC OF AIR WEANED FROM TR BAND WITH NO BLEEDING NOTED. FIGNERS WARM AND CAP REFILL IS BRISK. PT IS ALERT AND DENIES ANY C/O. SHE PO FLUIDS AND SANDWICH WITH NO NAUSEA. VSS.
--- NOTE | 2018-08-27 12:54 | NUR ---
2 CC OF AIR WEANED FROM TR BAND WITH NO BLEEDING NOTED. FINGERS WARM AND CAP REFILL IS BRISK. NSR, DENIES ANY C/O CHEST PAIN.
--- NOTE | 2018-08-27 13:20 | NUR ---
2 CC OF AIR WEANED FROM TR BAND WITH SLIGHT OOZING NOTED. AIR REINSTILLED AND OOZING CEASED. DC INSTRUCTIONS HAVE BEEN REVIEWED WITH PT WHO VERBALIZES UNDERSTANDING. [facility] CALLED TO [facility] PER PT REQUEST. MOTHER AT BEDSIDE.
--- NOTE | 2018-08-27 13:50 | NUR ---
4 CC OF AIR WEANED FROM TR BAND WITH NO BLEEDING NOTED. FINGERS WARM AND CAP REFILL IS BRISK. PT ALERT AND DENIES ANY C/O. IV DC'D WITH CATH INTACT, PT DRESSING FOR DC WITH ASSIST.
--- NOTE | 2018-08-27 13:54 | NUR ---
ASSISTED P TTO THE BATHROOM VIA WC, PT VOIDED QS. IS ALERT AND DENIES ANY C/O.
--- NOTE | 2018-08-27 14:00 | NUR ---
ALL AIR WEANED FROM TR BAND WITH NO BLEEDING NOTED.
--- NOTE | 2018-08-27 14:31 | NUR ---
1420 DRESSING REMAINS CDI TO RIGHT WRIST, IMMOBILIZER IN PLACE. PT IS ALERT AND DENIES ANY C/O. PT ESCORTED TO PRIVATE AUTO VIA WC BY NURSE WITH MOTHER DRIVING HER HOME. PT HAS ALL PERSONAL BELONGINGS AND DC INSTRUCTIONS.
== END 2018-08-27 14:20 | disposition home or self-care (01) ==
LOC: D.CATH 06:37
PROVIDERS: ATTEND Internal Medicine Cardiovascular Disease
DX: I25.119 Atherosclerotic heart disease of native coronary artery with unspecified angina pectoris (principal); Z01.812 Encounter for preprocedural laboratory examination

== ENCOUNTER → 2018-10-06 13:35 | Outpatient (CLI) | payer BC ==
[2018-08-27 07:14] VITALS: BMI 37.2
[~2018-10-06 13:35] MED LIST changes: +CORTEF10 MG PO; +PLAVIX75 MG PO
== END | disposition home or self-care (01) ==
LOC: D.MRI 13:35
PROVIDERS: ATTEND Family Medicine
DX: M54.16 Radiculopathy, lumbar region (principal)

== ENCOUNTER 2019-07-09 09:00 | Outpatient (CLI) | payer BC ==
[2018-08-27 07:14] VITALS: BMI 37.2
== END 2019-07-09 10:00 | disposition home or self-care (01) ==
LOC: D.MAMMO 09:00
PROVIDERS: ATTEND Family Medicine
DX: Z12.31 Encounter for screening mammogram for malignant neoplasm of breast (principal)

== ENCOUNTER → 2019-08-25 13:49 | Outpatient (CLI) | payer BC ==
[2018-08-27 07:14] VITALS: BMI 37.2
== END | disposition home or self-care (01) ==
LOC: D.MRI 13:49
PROVIDERS: ATTEND Clinical Nurse Specialist Family Health
DX: M25.561 Pain in right knee (principal)

== ENCOUNTER → 2019-09-10 01:27 | Outpatient (CLI) | payer BC ==
[2018-08-27 07:14] VITALS: BMI 37.2
[2019-09-10 03:06] LABS: T4 THYROXIN - FREE 1.3 ng/dL (0.76-1.46); THYROID STIMULATING HORMONE 0.45 uIU/mL (0.36-3.74)
== END | disposition home or self-care (01) ==
LOC: D.LABREF 01:27
PROVIDERS: ATTEND Nurse Practitioner
DX: E03.9 Hypothyroidism, unspecified (principal)

== ENCOUNTER → 2019-09-16 08:50 | Outpatient (CLI) | payer BC ==
[2018-08-27 07:14] VITALS: BMI 37.2
== END | disposition home or self-care (01) ==
LOC: D.HCCARDIO 08:50
PROVIDERS: ATTEND Internal Medicine Cardiovascular Disease
DX: I25.10 Atherosclerotic heart disease of native coronary artery without angina pectoris (principal)

== ENCOUNTER 2019-10-04 11:11 | Day surgery (SDC) | payer BC ==
[~2019-10-04] VITALS: Ht 167.6 cm; Wt 105.9 kg
--- NOTE | ~2019-10-04 | HEMODYNAMI ---
PATIENT:FRANKIE BENDER MEDICAL RECORD: [id number] : 62 LOCATION:[facility] ADMISSION DATE: 10/04/19 Generatedon:10/04/201913:41 Patient name: FRANKIE BENDER Patient #: [id number] : 1960 Date of study: 10/04/2019 Page: Of Hemodynamic Procedure Report Patient Data Patient Demographics Procedure consent was obtained First Name: FRANKIE Gender: Female Last Name: NAPOLEON : 1960 Middle Initial: Real Age: 59 year(s) Patient #: [id number] Race: SSN: [id number] Additional ID: [id number] Contact details Address: [address] [place] [address] State: [place] City: [place] Zip code: [address] Past Medical History Allergies Allergen Reaction Date Comments Reported Other allergy 08/27/2018 HYDROCODONE Admission Admission Data Admission Date: 10/04/2019 Admission Time: 11:11 Arrival Date: 10/04/2019 Arrival Time: 13:00 Admit Source: Other Insurance Payor: Private health insurance [facility] #: [id number] Height (in.): 65.75 BSA: 2.12 (m2) Height (cm.): 167 BMI: 37.65 (kg/m2) Weight (lbs.): 231.49 Weight (kg.): 105 Lab Results Lab Result Date: 10/04/2019 Lab Result Time: 0:00 Biochemistry Name Units Result Min Max BUN mg/dl 33 --(----)-* 7 18 Creatinine mg/dl 1.1 --(--*-)-- 0.6 1.3 eGFR ml/min 54 *-(----)-- 90 120 NONAFRICAN CBC Name Units Result Min Max Hemoglobin g/dl 12.9 -*(----)-- 13.5 17.5 Procedure Procedure Types Cath Procedure Diagnostic Procedure LHC C w/Coronaries Sedation Charges Moderate Sedation up to 15 minutes Procedure Description Procedure Date Procedure Date: 10/04/2019 Procedure Start Time: 13:24 Procedure End Time: 13:37 Procedure Staff Name Function Liz René RT Monitor Corky Morales RN Nurse Velasquez Cervantes MD Performing Physician Cecy Gonzalez RT Scrub Procedure Data Cath Procedure Fluoroscopy Diagnostic fluoroscopy Total fluoroscopy Time: 2.5 time: 2.5 min min Diagnostic fluoroscopy Total fluoroscopy dose: 854 dose: 854 mGy mGy Contrast Material Contrast Material Type Amount (ml) Isovue 300 63 Entry Location Entry Primary Successful Side Size Upsize Upsize Entry Closure Floyd ccessful Closure Location (Fr) 1 (Fr) 2 (Fr) Remarks Device Remarks Radial Right 6 Fr Mechanical artery Short Compression Estimated blood loss: 5 ml Diagnostic catheters Device Type Used For End Catheter Placement DIAGNOSTIC [place] 110cm 5 Multi-vessel Fr catheter ([id number]) Angiography Procedure Complications No complications Procedure Medications Medication Administration Route Dosage Oxygen etCO2 Nasal cannula 2 l/min Lidocaine 2% added to field 20 Heparin Flush Bag added to field 2 bags (1000units/500ml NS) 0.9% NaCl I.V. 100 ml/hr Radial Cocktail added to field 1 syringe (Verapamil 2mg/Nitro 400mcg/Heparin 1500units) Versed I.V. 2 mg Fentanyl I.V. 100 mcg Versed I.V. 1 mg Fentanyl I.V. 50 mcg Versed I.V. 1 mg Hemodynamics Rest BSA: 2.12 (m2) HGB: 12.9 (g/dl) O2 Consumption: Estimated: 217.4 (ml/min) O2 Con sumption indexed: Estimated:102.55 (ml/min/m) Heart Rate: 89 (bpm) Pressure Samples Time Site Value (mmHg) Purpose Heart Use Rate(bpm) 13:28 LV 112/-4,2 Snapshot 70 Gradients Valve Time Site Site Mean SEP/DFP Peak To Heart Use 1 2 (mmHg) (sec/min) Peak Rate (mmHg) (bpm) Aortic 13:28 LV AO 75 Snapshots Pre Cath Intra NCS Post Cath Vital Signs Time Heart Resp SPO2 etCO2 NIBP (mmHg) Rhythm Pain Sedation Rate (ipm) (%) (mmHg) Status Level (bpm) 13:01:15 84 24 97 32.3 120/86(105) NSR 0 (11) 10(A) , No pain 13:05:22 75 21 96 33.8 115/78(96) NSR 0 (11) 10(A) , No pain 13:09:30 68 17 94 39.1 115/73(84) NSR 0 (11) 10(A) , No pain 13:13:40 69 18 95 38.3 111/68(91) NSR 0 (11) 10(A) , No pain 13:17:46 71 38 95 39.8 104/72(87) NSR 0 (11) 10(A) , No pain 13:21:50 69 18 96 37.6 109/70(86) NSR 0 (11) 10(A) , No pain 13:25:57 71 20 94 38.3 101/66(81) NSR 0 (11) 9(A) , No pain 13:30:03 75 18 92 35.3 96/62(82) NSR 0 (11) 9(A) , No pain 13:34:07 74 18 94 36.8 101/66(82) NSR 0 (11) 10(A) , No pain Medications Time Medication Route Dose Verified Delivered Reason Notes Effectiveness by by 13:03:04 Oxygen etCO2 2 l/min Velasquez Buffie used for Nasal Billy Morales RN procedure cannula 13:03:35 Lidocaine 2% added 20ml Velasquez Velasquez for local to vial Billy Cervantes MD anesthetic field 13:03:41 Heparin Flush added 2 bags Velasquez Velasquez used for Bag to Billy Cervantes MD procedure (1000units/500ml field NS) 13:03:52 0.9% NaCl I.V. 100 Velasquez Buffie used for ml/hr Billy Morales RN procedure 13:14:24 Versed I.V. 2 mg Velasquez Buffie for sedation Billy Morales RN 13:14:29 Fentanyl I.V. 100 mcg Velasquez Buffie for sedation Billy Morales RN 13:19:12 Versed I.V. 1 mg Velasquez Buffie for sedation Billy Morales RN 13:19:16 Fentanyl I.V. 50 mcg Velasquez Buffie for sedation Billy Morales RN 13:25:03 Radial Cocktail added 1 Velasquez Velasquez for (Verapamil to syringe Billy Cervantes MD vasodilation 2mg/Nitro field 400mcg/Hepari 13:26:41 Versed I.V. 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 12:52:01 Corky Morales RN sent for patient. Start room use. 12:52:02 Time tracking: Regular hours (M-F 7:00 - 5:00) 12:52:06 Plan of Care:Hemodynamics will remain stable., Cardiac rhythm will remain stable., Comfort level will be maintained., Respiratory function will remain adequate., Patient/ family verbilizes understanding of procedure., Procedure tolerated without complication., Recovers from procedure without complications.. 13:00:16 Patient received from Pre/Post Procedure Room to CCL 2 Alert and oriented. Tansferred to table in Supine position. 13:00:17 Correct patient and procedure confirmed by team. 13:00:17 Warm blankets applied, and sandrtia hugger turned on for patient comfort. 13:00:18 Vital chart was started 13:00:18 ECG and BP/O2 sat monitors applied to patient. 13:00:19 Baseline sample Acquired. 13:00:23 Rhythm: sinus tachycardia 13:00:25 Full Disclosure recording started 13:00:29 H&P Date Dictated: 10/04/2019 Within 30 days and on chart., H&P Addendum completed by physician on day of procedure. (MUST COMPLETE FOR ALL OUTPATIENTS). 13:00:30 Pre-procedure instructions explained to patient. 13:00:31 Pre-op teaching completed and patient verbalized understanding. 13:00:34 Family in patients room. 13:00:44 Patient NPO since Midnight. 13:00:46 Is the patient allergic to Iodine/contrast media? No. 13:00:53 Was the patient premedicated? Yes 13:00:54 Is patient on blood thinner?No 13:00:55 Patient diabetic? No. 13:03:04 Oxygen 2 l/min etCO2 Nasal cannula was administered by Corky Morales RN; used for procedure; Verbal order read back and verified. 13:03:35 Lidocaine 2% 20ml vial added to field was administered by Velasquez Cervantes MD; for local anesthetic; Verbal order read back and verified. 13:03:40 Previous problem with sedation/anesthesia? No ? 13:03:41 Heparin Flush Bag (1000units/500ml NS) 2 bags added to field was administered by Velasquez Cervantes MD; used for procedure; Verbal order read back and verified. 13:03:42 Snore? Yes 13:03:43 Sleep apnea? Yes 13:03:44 Opens mouth fully? Yes 13:03:44 Deviated septum? No 13:03:45 Sticks out tongue? No 13:03:47 Airway obstruction? No ? 13:03:50 Dentures? No ? 13:03:52 0.9% NaCl 100 ml/hr I.V. was administered by Corky Morales RN; used for procedure; Verbal order read back and verified. 13:03:54 Pre procedure: right dorsailis pedis pulse 2+ Normal; easily identifiable; not easily obliterated 13:03:56 Pre procedure: left dorsailis pedis pulse 2+ Normal; easily identifiable; not easily obliterated 13:03:59 Modified Hakan's test Radial < 7 seconds 13:04:01 Patient pain scale 0/10 ?. 13:04:06 IV patent on arrival in left forearm with 0.9% NaCl at [facility]. 13:04:09 Lab results completed and on chart. 13:08:38 Lab Result : eGFR NONAFRICAN 54 ml/min 13:08:38 Lab Result : Hemoglobin 12.9 g/dl 13:08:38 Lab Result : BUN 33 mg/dl 13:08:38 Lab Result : Creatinine 1.1 mg/dl 13:09:17 Stress Test: yes; abnormal multivessel 13:09:22 Right Radial & Right Groin area was prepped with chlora-prep and draped in sterile fashion 13:09:24 Alarms reviewed by R. N. 13:09:25 Sharps counted by scrub and verified by R.N. 13:10:50 Zero performed for pressure channel P1 13:12:07 Physician arrived 13:12:08 Final Timeout: patient, procedure, and site verified with staff and physician. All members of the team are in agreement. 13:12:08 --------ALL STOP TIME OUT------ 13:12:11 Right Radial & Right Groin site verified by team. 13:12:15 Fire Safety Assessment: A--An alcohol-based skin anteseptic being used preoperatively., C--Open oxygen or nitrous oxide is being used., D--An ESU, laser, or fiber-optic light is being used. 13:12:18 Physical assessment completed. ASA score P 2 - A patient with mild systemic disease as per Velasquez Cervantes MD. 13:12:30 3a) 45-59 Moderately reduced kidney function. 13:13:10 Maximum allowable contrast dose (3.7 X eGFR X 0.75)149 ml. 13:13:15 Sedation plan: IV Moderate Sedation Medication:Versed, Fentanyl 13:13:19 Use device set Radial Dx or PCI 13:13:20 Medline Cath Pack ([id number]) opened to sterile field. 13:13:20 ACIST Syringe (32446) opened to sterile field. 13:13:21 ACIST Hand Control (99318) opened to sterile field. 13:13:21 Bag Decanter (2002S) opened to sterile field. 13:13:22 Tegaderm 4 x 4 (1626W) opened to sterile field. 13:13:22 ACIST Manifold (12712) opened to sterile field. 13:13:23 MBrace Wrist Support ([id number]) opened to sterile field. 13:13:24 NEEDLE Cook 21G 4cm Radial (Q52232) opened to sterile field. 13:13:25 SHEATH 6FR RAIN (0450198) opened to sterile field. 13:13:26 EMERALD Guide Wire (938-556) opened to sterile field. 13:14:24 Versed 2 mg I.V. was administered by Corky Morales RN; for sedation; Verbal order read back and verified. 13:14:29 Fentanyl 100 mcg I.V. was administered by Corky Morales RN; for sedation; Verbal order read back and verified. 13:19:12 Versed 1 mg I.V. was administered by Corky Morales RN; for sedation; Verbal order read back and verified. 13:19:16 Fentanyl 50 mcg I.V. was administered by Corky Morales RN; for sedation; Verbal order read back and verified. 13:24:21 Procedure started. 13:24:26 Local anesthetic to right radial artery with Lidocaine 2% by Velasquez Cervantes MD.INITIAL ACCESS ONLY 13:24:35 A 6 Fr Short sheath was inserted into the Right Radial artery 13:25:03 Radial Cocktail (Verapamil 2mg/Nitro 400mcg/Heparin 1500units) 1 syringe added to field was administered by Velasquez Cervantes MD; for vasodilation; Verbal order read back and verified. 13:26:41 Versed 1 mg I.V. was administered by Corky Morales RN; for sedation; Verbal order read back and verified. 13:27:11 A DIAGNOSTIC [place] 110cm 5 Fr catheter ([id number]) was advanced over the wire and used for Multi-vessel Angiography. 13:28:57 LV hemodynamics recorded. 13:28:58 LV gram done using BEEBE 13:29:01 Injector settings: Ml/sec: 5, Volume: 15, 13:29:06 EF : 60 % 13:29:31 RCA angiography performed. 13:29:39 Injector settings: Ml/sec: 3, Volume: 6, 13:31:04 LCA angiography performed. 13:31:07 Injector settings: Ml/sec: 3, Volume: 6, 13:32:52 Catheter removed. 13:32:57 ZEPHYR REGULAR TR BAND ([id number]) opened to sterile field. 13:34:58 Sheath removed intact; hemostasis achieved with Mechanical Compression to the Right Radial artery. 13:35:00 Procedure ended.(Physican Out) 13:35:16 Fluoroscopy time 02.50 minutes. 13:35:20 Fluoroscopy dose: 854 mGy 13:35:20 Flurop Dose total: 854 13:35:26 Dose Area Product 01785 mGy/cm. 13:35:54 Contrast amount:Isovue 300 63ml. 13:36:00 Maximum allowable dose exceeded? No. 13:36:01 Sharps counted by scrub and verified by R.N. 13:36:02 Insertion/operative site no bleeding no hematoma. 13:36:08 Post right radial artery:stable 13:36:09 Post Procedure Pulses reassessed and unchanged 13:36:12 Post procedure rhythm: unchanged. 13:36:15 Estimated blood loss: 5 ml 13:36:17 Post procedure instruction explained to patient.Patient verbalizes understanding. 13:36:18 Patient needs reinforcement of post procedure teaching. 13:36:49 Procedure type changed to Cath procedure, Diagnostic procedure, LHC, [facility] w/Coronaries, Sedation Charges, Moderate Sedation up to 15 minutes 13:36:50 Procedure and supply charges have been captured, reviewed, submitted and are correct. 13:36:55 Procedure Complication : No complications 13:36:57 Vital chart was stopped 13:37:00 [facility] Findings: mild to moderate CAD (<70%) 13:37:01 Operative report dictated upon procedure completion. 13:37:02 See physician's report for complete and final results. 13:37:04 Report given to Pre/Post Procedure Room. 13:37:06 Patient transfered to Pre/Post Procedure Room with Stretcher. 13:37:11 Full Disclosure recording stopped 13:37:11 Procedure ended. 13:37:16 End room use (Document Last) 13:38:21 End room use (Document Last) 13:38:56 End room use (Document Last) Device Usage Item Name Manufacture Quantity Catalog Hospital Part Current Minima l Lot# / Number Charge Number Stock Stock Serial# Code ACIST Acist 1 88386 [id number] 368146 [id number] 20 Syringe Medical (04938) Systems Inc Medline Medline 1 [id number] 909034 65901 756561 5 Cath Pack ([id number]) Bag Microtek 1 2001S 660939 92985 844399 5 Decanter Medical Inc. () ACIST Hand Acist 1 12475 679422 376254 143713 5 Control Medical (03540) Systems Inc ACIST Acist 1 39650 026997 799464 249402 5 Manifold Medical (55151) Systems Inc Tegaderm 4 3M 1 1626W 181727 188513 335445 5 x 4 (1626W) MBrace Advanced 1 140-0250-00 240174 33475 543891 5 Wrist Vascular Support Dynamics ([id number]) NEEDLE [employer] 1 [id number] 796539 761885 488966 5 21G 4cm Radial (R18386) SHEATH 6FR Cardinal 1 3150353 675708 0460634 932019 5 [facility] (6082340) EMERALD Cardinal 1 502-455 830527 956938 920671 5 Guide Wire Health (985-930) DIAGNOSTIC Terumo 1 84-0055 036139 917341 803087 5 [place] 110cm 5 Fr catheter (202321) ZEPHYR Cardinal 1 405611 577871 4348346 627504 5 REGULAR TR Health BAND (700976) Signature Audit [place] Stage Time Signature Unsigned Intra-Procedure 10/04/2019 Liz Merritt 1:38:21 PM RT(R) Intra-Procedure 10/04/2019 Corky Morales RN 1:38:56 PM Intra-Procedure 10/04/2019 Velasquez Cervantes MD 1:40:58 PM Signatures Monitor : Liz Merritt RT Signature : Date : Time : Nurse : Corky Morales RN Signature : Date : Time : Performing Physician : Signature : Velasquez Cervantes MD Date : Time : [address] [address]
[2019-10-04] MEDS ORDERED: CRESTOR5 MG PO (11:32)
[2019-10-04 11:53] VITALS: BP 133/87; Ht 167.6 cm; Wt 105.9 kg
[2019-10-04 12:11] LABS: BASOPHILS 0.2 % (0-2); EOSINOPHILS 1.7 % (0-7); HEMATOCRIT 39.7 % (36.0-48.0); HEMOGLOBIN 12.9 g/dL (12-16); IMMATURE GRANULOCYTES 0.2 % (0-5); LYMPHOCYTES 23.8 % (15-50); MCH 29.1 pg (26.0-34.0); MCHC 32.5 g/dL (31.0-37.0); MCV 89.6 fL (80.0-100.0); MEAN PLATELET VOLUME 10.5 fL (7.4-10.4); MONOCYTES 7.3 % (2-11); NEUTROPHILS 66.8 % (40-80); PLATELET COUNT 285 10x3/uL (130-400); RBC 4.43 10x6/uL (4.00-5.40); RDW 13.2 % (11.5-14.5); WBC 9.6 10x3/uL (4.8-10.8)
[2019-10-04 13:04] LABS: ANION GAP 14.8 mmol/L (8-16); CALCIUM 9.2 mg/dL (8.5-10.1); CARBON DIOXIDE 20.7 mmol/L (21.0-32.0); CREATININE - SERUM 1.1 mg/dL (0.6-1.3); LDL-HDL RATIO 2.4 ratio (1.5-3.5); POTASSIUM - SERUM 4.5 mmol/L (3.5-5.1)
--- NOTE | 2019-10-04 13:50 | NUR ---
PT ARRIVED BY STRETCHER. PLACED ON MONITORS. ASSESSMENT COMPLETED. VSS AT THIS TIME. CALL LIGHT WITHIN REACH.
--- NOTE | 2019-10-04 14:05 | NUR ---
PT RESTING COMFORTABLY. VSS. RIGHT WRIST Z BAND IN PLACE. NO BLEEDING/HEMATOMA NOTED. CALL LIGHT WITHIN REACH. NO NEEDS AT THIS TIME.
--- NOTE | 2019-10-04 14:35 | NUR ---
RIGHT WRIST Z BAND IN PLACE. NO BLEEDING/HEMATOMA NOTED. CALL LIGHT WITHIN REACH. VSS AT THIS TIME. PT RESTING COMFORTABLY.
--- NOTE | 2019-10-04 15:00 | NUR ---
2cc OF AIR REMOVED FROM Z BAND. NO BLEEDING/HEMATOMA NOTED. VSS. CALL LIGHT WITHIN REACH. PT DENIES NAUSEA. GIVEN WATER. DOES NOT WANT FOOD AT THIS TIME.
--- NOTE | 2019-10-04 15:15 | NUR ---
3cc OF AIR REMOVED FROM Z BAND. NO BLEEDING/HEMATOMA NOTED. CALL LIGHT WITHIN REACH. VSS AT THIS TIME.
--- NOTE | 2019-10-04 15:30 | NUR ---
4cc OF AIR REMOVED FROM Z BAND. NO BLEEDING/HEMATOMA NOTED. CALL LIGHT WITHIN REACH. VSS AT THIS TIME.
--- NOTE | 2019-10-04 15:45 | NUR ---
Z BAND REMOVED AND DRESSING APPLIED. NO BLEEDING/HEMATOMA NOTED. PIV D/C'D WITH CATH TIP INTACT. TOLERATED WELL. PT INSTRUCTED TO GET UP AND DRESSEDS AT THIS TIME.
--- NOTE | 2019-10-04 15:55 | NUR ---
PT AMBULATED TO RESTROOM. VOIDED WITHOUT DIFFICULTY. STEADY GAIT NOTED. DISCUSSED DISCHARGE INSTRUCTIONS WITH PT. SHE VOICED UNDERSTANDING.
--- NOTE | 2019-10-04 16:05 | NUR ---
RIGHT WRIST DRESSING C/D/I. NO S/S OF HEMATOMA NOTED. PT WAITING ON RIDE TO GET HERE TO GO HOME. NO S/S OF DISTRESS NOTED. PT SITTING UP IN CHAIR AT THIS TIME.
--- NOTE | 2019-10-04 16:20 | NUR ---
PT TAKEN DOWN TO VEHICLE BY WHEELCHAIR. NO S/S OF DISTRESS NOTED. ALL BELONGINGS AND PAPERWORK IN HAND.
== END 2019-10-04 16:20 | disposition home or self-care (01) ==
LOC: D.CATH 11:11
PROVIDERS: ATTEND Internal Medicine Cardiovascular Disease
DX: I25.119 Atherosclerotic heart disease of native coronary artery with unspecified angina pectoris (principal); R94.39 Abnormal result of other cardiovascular function study; R06.00 Dyspnea, unspecified; R53.83 Other fatigue; I10 Essential (primary) hypertension; I05.9 Rheumatic mitral valve disease, unspecified